=== PATIENT | female | born 1960 | race Caucasian/White ===

== ENCOUNTER 2019-03-10 05:50 | Inpatient (IN) | payer BC ==
[~2019-03-10 05:50] MED LIST: Buffered Lidocaine 1% SYRIN* 1 ML/SYRINGE INTRADERM ONE
[2019-03-10] MEDS ORDERED: Famotidine IV* 10 MG/ML 2 ML (20 mg) IV ONE (06:00)
[2019-03-10] MEDS ORDERED: Lactated Ringers 1000 ML Bag* 1,000 ML IV SCH (06:00)
[2019-03-10] MEDS ORDERED: Dexamethasone IV* 4 MG/ML 1 ML (4 MG) IV SLOW PU ONE (06:00)
[2019-03-10] MEDS ORDERED: ceFAZolin 2 GM in NS PREMIX(*) 2 GM/100 ML BAG IVPB ONE (06:19)
[2019-03-10] MEDS ORDERED: ceFAZolin 1 GM ADVAN(*) 1 GM ADDV.VIAL IVPB ONE (06:19)
[2019-03-10] MEDS ORDERED: Dexamethasone IV* 4 MG/ML 1 ML (4 MG) ONE (06:19)
[2019-03-10] MEDS ORDERED: Famotidine IV* 10 MG/ML 2 ML (20 mg) ONE (06:19)
[2019-03-10] MEDS ORDERED: Heparin VIAL(*) 5000 UNITS/ML VIAL (FIVE THOUSAND) ONE (06:19)
[2019-03-10] MEDS ORDERED: fentaNYL* 50 MCG/ML 5 ML VIAL (250 MCG VIAL) ONE (07:03)
[2019-03-10] MEDS ORDERED: Midazolam* 1 MG/ML 5 ML VIAL (5 MG) ONE (07:04)
[2019-03-10] MEDS ORDERED: Rocuronium* 10 MG/ML VIAL ONE (07:04)
[2019-03-10] MEDS ORDERED: Propofol* 10 MG/ML 20 ML BTL ONE (07:04)
[2019-03-10] MEDS ORDERED: Ketorolac INJ* 30 MG/ML 1 ML VIAL ONE (07:04)
[2019-03-10] MEDS ORDERED: Ondansetron INJ* 2 MG/ML VIAL ONE (07:04)
[2019-03-10] MEDS ORDERED: Bupivacaine 0.25% EPI 200,000* 30 ML SDV ONE ×2 (07:14→08:33)
[2019-03-10] MEDS ORDERED: Sugammadex * 200 MG/2 ML VIAL IV PUSH ONE (07:17)
[2019-03-10] MEDS ORDERED: Glycopyrrolate IV* 0.2 MG/ML 1 ML VIAL ONE (07:19)
[2019-03-10] MEDS ORDERED: Lidocaine 2% PF * 5 ML VIAL ONE (07:39)
[2019-03-10] MEDS ORDERED: fentaNYL* 50 MCG/ML 2 ML VIAL (100 MCG VIAL) ONE ×3 (08:10→09:59)
[2019-03-10] MEDS ORDERED: HYDROmorphone INJ1* 1 MG/ML SYRINGE IV PRN (08:10)
[2019-03-10] MEDS ORDERED: Ondansetron INJ* 2 MG/ML VIAL IV PRN ×2 (08:10→09:35)
[2019-03-10] MEDS ORDERED: DiMENhydriNATE IV* 50 MG/ML VIAL IV PUSH PRN (08:10)
[2019-03-10] MEDS ORDERED: Naloxone* 0.4 MG/ML 1 ML VIAL IV PRN (08:10)
[2019-03-10] MEDS ORDERED: Scopolamine 1.5 mg* PATCH TRANSDERM PRN (08:10)
[2019-03-10] MEDS ORDERED: HYDROmorphone INJ1* 1 MG/ML SYRINGE IV SLOW PU PRN ×2 (09:35→09:39)
[2019-03-10] MEDS ORDERED: diPHENhydraMINE IV* 50 MG/ML 1 ml VIAL (BENADRYL) SLOW PUSH PRN (09:35)
[2019-03-10] MEDS: fentaNYL* 50 MCG/ML 2 ML VIAL (100 MCG VIAL) IV PRN ×2 (09:59→10:04)
[2019-03-10] MEDS: Lactated Ringers 1000 ML Bag* 1,000 ML IV SCH ×2 (10:49→17:04)
[2019-03-10] MEDS: Heparin VIAL(*) 5000 UNITS/ML VIAL (FIVE THOUSAND) SUBCUT SCH ×2 (13:38→21:37)
[2019-03-10] MEDS: Ketorolac INJ* 30 MG/ML 1 ML VIAL IV SCH ×2 (13:40→20:26)
--- NOTE | 2019-03-10 14:01 | OP ---
CC: Dr. Rosaura Kramer; [facility] * DATE OF OPERATION: 03/10/19 - ROOM #351 DATE OF : 60 SURGEON: Mk Powers MD HAND VIOLIN MAKER: Sherie Lance NP ANESTHESIOLOGIST: Dr. Price. ANESTHESIA: General anesthesia. PRE-OP DIAGNOSES: 1. Clinically severe obesity. 2. Polycystic ovary disease. 3. Hypercholesterolemia. 4. Obstructive sleep apnea. POST-OP DIAGNOSES: 1. Clinically severe obesity. 2. Polycystic ovary disease. 3. Hypercholesterolemia. 4. Obstructive sleep apnea. OPERATIVE PROCEDURE: Laparoscopic sleeve gastrectomy. BLOOD LOSS: 100 cc. FLUIDS: Crystalloid fluid given. See anesthesia report for details. SPECIMEN: Portion of stomach. DRAINS: None. COUNTS: Lap pad count and instrument count correct at the end of the procedure. DESCRIPTION OF PROCEDURE: The patient was identified in the preoperative area. Case discussed with her and her again, going over the risks, benefits, and alternatives and consent was signed. She was marked, brought to the operating room, placed on the operating room table in supine position. Preoperative antibiotics were given. Sequential devices were placed on bilateral extremities. General anesthesia was induced. The patient's abdomen was prepped and draped in standard surgical fashion. Time-out was performed. Folds of the umbilicus were elevated anteriorly and a Veress needle inserted into the abdominal cavity, which was then allowed to insufflate to a pressure of 15 mmHg. The patient tolerated the insufflation well. A 12 mm optical trocar was then inserted in the upper midline. The Veress needle was removed. There was no evidence of injury and review of the abdomen showed a markedly bit enlarged liver and spleen. No free fluid. Additional trocars were then placed in the following positions: Two 5 mm in the left upper quadrant and a 12 mm in the right upper quadrant. Table was repositioned to a steep reverse Trendelenburg. A Abdias retractor was inserted through a subxiphoid incision and the liver was retracted anteriorly to the right. This exposed the gastroesophageal fat pad which was grasped and retracted towards the right lower quadrant and blunt dissection was carried out at this site to expose the left crura. Next, a retrogastric tunnel was made at 5 cm proximal to the pylorus and the greater curvature and the vasculature to the greater curvature was taken with LigaSure device right up to the area where we had previously dissected at the angle of His. A blunt injury to a short gastric was made. This showed minimal bleeding at first and we placed a 4 x 8 gauze at this site to apply pressure and turned our attention to the posterior aspect of the stomach. Additional dissection was carried out posteriorly until the stomach could be rotated along its axis. Attention was then re-turned to small bleeder superiorly near the spleen. We were able to gain access and the LigaSure was utilized for hemostasis. Gauze was removed and we turned our attention to the stomach. Next, a sleeve stomach was created with 60 mm purple JEWEL stapling devices with reinforcement strips, starting at the greater curvature and extending it towards the incisura. A 40-Romanian bougie was then inserted into the distal stomach, and once this was placed, we then fired the first staple line and continued the sleeve stomach with additional 50-mm purple jaja with reinforcement strips right up to the gastroesophageal fat pad ensuring that the staple line was straight without twisting. After the last staple line, the transected portion of the stomach was cut from our final staple line. There was some oozing at this site and we applied 2 large Endo Clips along the staple line for hemostasis. Next, the liver retractor was removed. The liver sat on top of the sleeve stomach covering most of the proximal portion of this. Hemostasis was achieved. Review of the spleen showed an area of ischemic changes at the most medial lobe that was consistent with the blood vessel we took. Next, the transected portion of the stomach was placed in an endoscopic retrieval bag and brought out through the right upper quadrant port site as we were dilating the site. It was passed off as specimen. We then closed the fascia at the site with an 0 Vicryl suture using a WECK device. The abdomen was allowed to collapse, trocars were removed under direct vision, and all 5 skin incisions were reapproximated with 4-0 Monocryl subcuticular sutures followed by Steri-Strips and sterile dressing. The patient tolerated the procedure well and was transferred to the PACU in stable condition. [id number]/[facility] #: [id number] MTDD
[2019-03-10] MEDS: Famotidine IV* 10 MG/ML 2 ML (20 mg) IV SLOW PU SCH (21:42)
[2019-03-11] MEDS: Lactated Ringers 1000 ML Bag* 1,000 ML IV SCH ×2 (00:12→07:54)
[2019-03-11] MEDS: Ketorolac INJ* 30 MG/ML 1 ML VIAL IV SCH ×3 (01:45→14:16)
[2019-03-11] MEDS: Heparin VIAL(*) 5000 UNITS/ML VIAL (FIVE THOUSAND) SUBCUT SCH ×2 (05:30→14:19)
--- NOTE | 2019-03-11 08:31 | PN ---
Progress Note - Progress Note Date of Service: 03/11/19 SOAP: Subjective: Pt seen and examined. Feels well. Objective: Temp Pulse Resp BP Pulse Ox 98.1 F 81 16 132/53 100 03/11/19 07:54 03/11/19 07:54 03/11/19 07:54 03/11/19 07:54 03/11/19 07:54 Uo good abdo: soft/ ND/NT dressing intact ext: wnl Assessment: POD 1 sleeve, HD stable Plan: UGI today possible d/c home today
[2019-03-11] MEDS ORDERED: D5W 1/2 NS KCl 20 Meq 1000 ML* 1,000 ML IV SCH (09:34)
[2019-03-11] MEDS: Famotidine IV* 10 MG/ML 2 ML (20 mg) IV SLOW PU SCH (09:46)
--- NOTE | 2019-03-11 15:41 | DS ---
CC: [facility]; Dr. Rosaura Kramer * DISCHARGE SUMMARY: DATE OF ADMISSION: 03/10/19 DATE OF DISCHARGE: 03/11/19 PRIMARY CARE PHYSICIAN: Dr. Rosaura Kramer. HOSPITAL COURSE: Ms. Gaytan was discharged home in stable condition. Ms. Gaytan is a 58-year-old female admitted on same-day surgery on 03/10/19 and underwent a laparoscopic sleeve gastrectomy. Please see operative report for details. The patient did well in the postoperative period, was ambulatory soon after surgery, and underwent an upper GI study on postop day 1. These images as well as the report reviewed and they were within normal limits. The patient was started on a bariatric clear diet and tolerated this well and was for planned discharge home. Followup appointment made for next week. The patient will resume her medications with the exception of metformin and we will see her in our offices at [facility]. [id number]/[facility] #: [id number]
[2019-03-11 16:20] VITALS: BP 150/74
== END 2019-03-11 17:55 | disposition home or self-care (01) | DRG 403 ==
LOC: AA 05:50 → SSU 09:31
PROVIDERS: ADMIT Surgery; ATTEND Surgery
PROC: 0DB64Z3 Excision of Stomach, Percutaneous Endoscopic Approach, Vertical (ICD-10-PCS; principal; 2019-03-10 07:30)
DX: E66.01 Morbid (severe) obesity due to excess calories (principal); G47.33 Obstructive sleep apnea (adult) (pediatric); E78.5 Hyperlipidemia, unspecified; M17.0 Bilateral primary osteoarthritis of knee; I77.819 Aortic ectasia, unspecified site; E78.00 Pure hypercholesterolemia, unspecified; E28.2 Polycystic ovarian syndrome; Z90.710 Acquired absence of both cervix and uterus; F41.9 Anxiety disorder, unspecified; E03.9 Hypothyroidism, unspecified; Z90.722 Acquired absence of ovaries, bilateral; Z85.43 Personal history of malignant neoplasm of ovary; Z82.61 Family history of arthritis; Z80.6 Family history of leukemia; Z80.0 Family history of malignant neoplasm of digestive organs; Z80.52 Family history of malignant neoplasm of bladder; Z82.3 Family history of stroke; Z83.2 Family history of diseases of the blood and blood-forming organs and certain disorders involving the immune mechanism; Z68.41 Body mass index [BMI] 40.0-44.9, adult; Z84.1 Family history of disorders of kidney and ureter; Z83.49 Family history of other endocrine, nutritional and metabolic diseases; Z82.49 Family history of ischemic heart disease and other diseases of the circulatory system; Z87.891 Personal history of nicotine dependence; Z83.3 Family history of diabetes mellitus
CPT/HCPCS: 43775; 74246; 88307; J0690; J1100; J1170; J1644; J1885; J2250; J2405; J2704; J3010